=== PATIENT | female | born 1960 | race African-American/Black ===

== ENCOUNTER 2017-02-01 06:20 | Observation (INO) | payer OTHER ==
[2017-02-01] VITALS (7 sets, daily range): BP systolic 139–197; BP diastolic 81–103; PULSE 57–84; RESP 16–18; TEMP 96.2–98.2; O2SAT 96–100
[~2017-02-01] VITALS: Ht 158.8 cm; Wt 63.6 kg
[~2017-02-01 06:20] MED LIST: LISI2.5T3 PO; MONT10TA2 PO; OMEP40CA2 PO; VITA1000 PO; ZYRT10CA PO
[2017-02-01] MEDS ORDERED: BACITRACIN TOP OINT 15 GM TUBE ONE (07:05)
[2017-02-01] MEDS ORDERED: OXYMETAZOLINE HCL 0.05% 15 ML NASAL SPRAY ONE (07:05)
[2017-02-01] MEDS ORDERED: LIDOCAINE 1%/EPINEPHrine 1:100,000 SOLN 30 ML VIAL ONE (07:06)
[2017-02-01] MEDS ORDERED: AMPICILLIN-SULBACTAM INJ 3 GM VIAL ONE (07:31)
[2017-02-01] MEDS ORDERED: SODIUM CHLORIDE 0.9% INJ 100 ML ONE (07:31)
[2017-02-01] MEDS ORDERED: MIDAZOLAM HCL 2 MG/2 ML VIAL ONE (08:22)
[2017-02-01] MEDS ORDERED: DEXAMETHASONE SOD PHOS 4 MG/ML VIAL ONE (08:23)
[2017-02-01] MEDS ORDERED: FAMOTIDINE 20 MG/2 ML VIAL ONE (08:25)
[2017-02-01] MEDS ORDERED: ACETAMINOPHEN 1000 MG/100 ML VIAL IV ONE (08:50)
[2017-02-01] MEDS ORDERED: MORPHINE SULFATE 4 MG/ML INJ ONE ×2 (10:27→10:45)
[2017-02-01] MEDS ORDERED: MORPHINE SULFATE 4 MG/ML INJ IV PUSH ONE ×2 (10:30→10:45)
[2017-02-01] MEDS ORDERED: LABETALOL HCL 100 MG/20 ML VIAL IVS ONE (10:50)
[2017-02-01] MEDS ORDERED: LABETALOL HCL 100 MG/20 ML VIAL ONE (10:50)
[2017-02-01] MEDS ORDERED: ONDANSETRON HCL 4 MG/2 ML VIAL ONE (10:57)
[2017-02-01] MEDS ORDERED: HYDROmorphone HCL PF 1 MG/ML VIAL ONE ×2 (10:58→11:15)
[2017-02-01] MEDS ORDERED: ONDANSETRON HCL 4 MG/2 ML VIAL IV PUSH ONE (11:00)
[2017-02-01] MEDS ORDERED: HYDROmorphone HCL PF 1 MG/ML VIAL IV PUSH ONE (11:05)
[2017-02-01] MEDS: LACTATED RINGER'S 1000 ML INJ 1,000 ML IV SCH ×2 (12:00→23:42)
[2017-02-01] MEDS ORDERED: PROPOFOL 200 MG/20 ML AMP IV ONE (12:00)
[2017-02-01] MEDS: ACETAMINOPHEN/HYDROcodone 325 MG/5 MG TAB PO PRN ×3 (13:26→21:38)
--- NOTE | 2017-02-01 15:21 | EKG ---
Date Performed: 02/01/2017 Time Performed: 07:17:20 PTAGE: 57 years EKG: Sinus rhythm . Leftward axis Inferior T wave changes are nonspecific Borderline ECG PREVIOUS TRACING : 08/27/2008 21.39 Compared to previous tracing, QRS voltage has decreased dif fusely. DOCTOR: Natan Oleary Interpretating Date/Time 02/01/2017 15:20:15
[2017-02-01] MEDS ORDERED: PILL SPLITTER OTHER PRN (16:30)
[2017-02-01] MEDS: CHOLECALCIFEROL (VIT D3) 1000 UNIT TAB PO SCH (17:00)
[2017-02-01] MEDS: LISINOPRIL 5 MG TAB PO SCH (17:00)
[2017-02-01] MEDS: PANTOPRAZOLE SOD 40 MG DELAYED RELEASE TAB PO SCH (17:00)
[2017-02-01] MEDS: AMPICILLIN/SULBAC 1500 MG/NS 100 ML IV SCH ×2 (17:19)
[2017-02-01] MEDS: ONDANSETRON HCL 4 MG/2 ML VIAL IV PUSH PRN ×2 (17:22→23:41)
[2017-02-01] MEDS ORDERED: MONTELUKAST SODIUM 10 MG TAB PO SCH (21:00)
[2017-02-02] VITALS: BP 166/88; PULSE 64; RESP 18; TEMP 96.1; O2SAT 100
[2017-02-02] MEDS: AMPICILLIN/SULBAC 1500 MG/NS 100 ML IV SCH ×4 (01:35→08:29)
[2017-02-02] MEDS: LACTATED RINGER'S 1000 ML INJ 1,000 ML IV SCH (01:35)
[2017-02-02] MEDS: ACETAMINOPHEN/HYDROcodone 325 MG/5 MG TAB PO PRN ×3 (01:38→09:19)
[2017-02-02 05:24] VITALS: BP 164/77; PULSE 71; RESP 18; TEMP 96.9; O2SAT 99
[2017-02-02 08:00] VITALS: BP 165/94; PULSE 72; RESP 20; TEMP 96.4; O2SAT 99
[2017-02-02] MEDS: LISINOPRIL 5 MG TAB PO SCH (08:29)
[2017-02-02] MEDS: CHOLECALCIFEROL (VIT D3) 1000 UNIT TAB PO SCH (08:30)
[2017-02-02] MEDS: PANTOPRAZOLE SOD 40 MG DELAYED RELEASE TAB PO SCH (08:31)
[2017-02-02] MEDS ORDERED: CETIRIZINE HCL 10 MG TAB PO SCH (09:00)
--- NOTE | 2017-03-22 07:20 | MP ---
cc: GEORGIA MOLINA M.D. DATE OF SURGERY 02/01/[address] Georgia molina PREOPERATIVE DIAGNOSIS 1. Chronic pansinusitis 2. Nasal airway obstruction 3. Nasal septal deviation 4. Hypertrophy of inferior turbinates POSTOPERATIVE DIAGNOSIS 1. Chronic pansinusitis 2. Nasal airway obstruction 3. Nasal septal deviation 4. Hypertrophy of inferior turbinates OPERATION PERFORMED 1. Septoplasty 2. Bilateral submucosal resection of inferior turbinates 3. Bilateral endoscopic total ethmoidectomy. 4. Bilateral endoscopic maxillary antrostomy with debridement of maxillary sinus tissue 5. Bilateral endoscopic exploration of frontal sinus ducts with balloon Sinuplasty dilation. 6. Bilateral endoscopic sphenoidotomy with removal of sphenoid sinus tissue. INDICATIONS Documented in the history and physical. DESCRIPTION OF THE OPERATION The patient was taken to OR #2 and placed in the supine position. Following induction of general anesthesia and intubation, the nose was packed bilaterally with cotton pledgets saturated in 0.05% Oxymetazoline. Nasal septum and inferior turbinates were injected with a total of 6 mL of 1% Xylocaine with epinephrine 1:100,000 and she was then prepped and draped for surgery. The packing was removed and a hemitransfixion incision was made in the left nasal vestibule. Through this incision, the septal mucosa was elevated bilaterally as far as the rostrum of the sphenoid followed by removal of a 2 x 2.5 cm segment of quadrangular cartilage preserving 1.5 cm dorsal and caudal cartilaginous struts. When this was completed, the bony septum was removed with Funez-Lucas forceps and the maxillary crest was removed using a 6-mm Natasha chisel. The incision was then closed using a running suture of 4-0 chromic and the mucosal layers of septum were approximated to each other with a quilting stitch of 4-0 plain gut. The inferior turbinates were then fractured out medially and stab incisions were made along their inferior surfaces. Through these incisions, the submucosal soft tissue was reduced using a curette and preserving the conchal bone. The incision and then cauterized using the suction Bovie at 35 thomas and the remnants of the inferior turbinates were relateralized to the lateral nasal wall. At this point forward, the operation was completed using endoscopic visualization. Additional injections of lidocaine and epinephrine were made into the attachments to the middle turbinates, the uncinate processes and the anterior and posterior ethmoid cells bilaterally. The left side was addressed first beginning with amputation of the middle turbinate using through cutting Blakesley forceps and the power microdebrider, followed by uncinectomy and exoneration of the anterior and posterior ethmoids using blunt and power dissection. This was also carried back as far as the rostrum of the sphenoid. The contents of the ethmoids were included in the specimen labeled left sinus contents. Next, the maxillary ostium was addressed. It was probed using a 3-mm olive-tipped suction and the opening then enlarged using Stammberger forceps and the power microdebrider. The cavity was then debrided of mucopurulent material and soft tissue lining the posterior medial and lateral mcknight of the maxillary sinus cavity. Next on this side, the sphenoid ostium was enlarged using first a #10 suction and then enlargement using the power microdebrider. The cavity was debrided of polypoid soft tissue and mucopurulent material using a 0 degrees scope and a Blakesley forceps. These left sinuses were then irrigated and suctioned and then packed with cotton pledgets saturated in Oxymetazoline which remained in place while the right side was operated in the same fashion beginning with amputation of middle turbinate and exoneration of the anterior posterior ethmoid cells, enlargement of the right maxillary ostium and debridement of the cavity and then enlargement and debridement of the sphenoid sinus. When this was completed, the sides were also irrigated and packed with cotton pledgets saturated in Oxymetazoline. These remained in place while the frontal sinuses were dilated using the Acclarent balloon technique on the left side first. The guidewire was advanced into the frontal sinus and then the balloon advanced over the wire and inflated at the superior level within the duct itself and at the junction of the duct and the ethmoid cells at each site to a pressure of 12 atmospheres. The balloon was then removed and the duct was examined under endoscopic visualization and debrided of small fragments of bone and soft tissue and verified patent all the way into the frontal sinus. The right frontal was then operated in the same fashion. At this point, the packing was removed from the ethmoid cavities bilateral and replaced with Stammberger sinus foam on both sides. The inferior one-third of the nasal vault was then packed bilaterally with Merocel tampons coated in bacitracin ointment and the procedure was terminated. The patient was reversed from anesthesia and taken to recovery in good condition. There were no complications. Blood loss was 400 mL. MD MARILIA Roque/JONATHON /6:49 AM /7:11 AM
== END 2017-02-02 09:48 | disposition home or self-care (01) ==
LOC: PHSDC 06:20 → PH3B 12:18
PROVIDERS: ADMIT Otolaryngology; ATTEND Otolaryngology
DX: J34.89 Other specified disorders of nose and nasal sinuses (principal); J34.2 Deviated nasal septum; J32.4 Chronic pansinusitis; J34.3 Hypertrophy of nasal turbinates; Z01.810 Encounter for preprocedural cardiovascular examination
CPT/HCPCS: 00160; 30140; 30520; 31255; 31267; 31288; 31296; 88305; 88311; 93005; 94762; G0378; J0131; J0295; J1100; J1170; J2250; J2270; J2405; J3010; J7120

== ENCOUNTER 2017-11-30 12:34 | Emergency (ER) | payer OTHER ==
[~2017-11-30] VITALS: Ht 157.5 cm; Wt 61.0 kg
[2017-11-30 12:38] VITALS: BP 171/105; PULSE 85; RESP 20
[2017-11-30 12:51] VITALS: BP_SYST 165; BP_SYST 171; BP_DIAS 105; BP_DIAS 89; PULSE 85; RESP 17; RESP 20; TEMP 98.7; O2SAT 100
[2017-11-30 13:12] LABS: AUTOMATED NEUTROPHIL # 3.1 TH/MM3 (1.8-7.7); BASOPHIL # 0.1 TH/MM3 (0-0.2); BASOPHIL % 1.1 % (0.0-2.0); EOSINOPHIL # 0.1 TH/MM3 (0-0.4); EOSINOPHIL % 1.2 % (0.0-4.0); HEMATOCRIT 39.1 % (35.0-46.0); HEMOGLOBIN 13.7 GM/DL (11.6-15.3); LYMPH % 52.3 % (9.0-44.0); MEAN CELL VOLUME 87.1 FL (80.0-100.0); MEAN CORPUSCULAR HEMOGLOBIN 30.5 PG (27.0-34.0); MEAN PLATELET VOLUME 8.4 FL (7.0-11.0); MONO % 5.3 % (0.0-8.0); MONOCYTE # 0.4 TH/MM3 (0-0.9); NEUT % 40.1 % (16.0-70.0); PLATELET COUNT 282 TH/MM3 (150-450); RED BLOOD COUNT 4.48 MIL/MM3 (4.00-5.30); RED CELL DISTRIBUTION WIDTH 14.1 % (11.6-17.2); WHITE BLOOD COUNT 7.7 TH/MM3 (4.0-11.0)
[2017-11-30 13:32] LABS: CALCIUM 8.8 MG/DL (8.5-10.1); CREATININE 0.62 MG/DL (0.50-1.00); MAGNESIUM 1.8 MG/DL (1.5-2.5)
--- NOTE | 2017-11-30 13:40 | PD ---
HPI Chief Complaint: Cardiac Complaint Time Seen by Provider: 12:40 Travel History International Travel<30 days: No Contact w/Intl Traveler<30days: No Traveled to known affect area: No History of Present Illness HPI 57-year-old female patient presents emergency department via EMS with a cardiac alert. 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 The EMS was called and she was found to be in SVT upon arrival. The adenosine given and patient was in normal sinus rhythm upon arrival to the emergency department. At this time the patient is denying any chest pain, shortness of breath, nausea, vomiting, diarrhea, recent fevers, dysuria, hematuria. Patient smokes a half pack cigarettes a day and drinks approximately 2 beers daily. Patient denies any other drug use. Patient was found to be in SVT approximately year ago that resolved on its own and has not presented again until now. Patient's medical history includes hypertension and GERD. Patient takes Singulair and omeprazole. Patient was prescribed lisinopril but she stopped taking it because it made her cough. EMS checked patient's glucose prior to arrival and wanted to be 75. Patient resting comfortably on the stretcher in no acute distress at this time. PFSH Past Medical History Asthma: Yes Heart Rhythm Problems: Yes (SVT) Cancer: No Cardiovascular Problems: Yes Diabetes: No Diminished Hearing: No Endocrine: Yes (hypothyroidism) Gastrointestinal Disorders: Yes (reflux) Genitourinary: No Hepatitis: No Hiatal Hernia: No Hypertension: Yes Immune Disorder: Yes (eczema, urticaria) Musculoskeletal: Yes (osteopenea, hx fractures) Psychiatric: No Reproductive: Yes (tubal ligation) Respiratory: Yes (asthma, hay fever, seasonal allergies) Sickle Cell Disease: Yes (SICKLE CELL TRAIT.) Thyroid Disease: Yes Tetanus Vaccination: Unknown Influenza Vaccination: No Tubal Ligation: Yes Past Surgical History AICD: No Gynecologic Surgery: Yes (tubal ligation) Joint Replacement: Yes (pins and plate left elbow) Pacemaker: No Other Surgery: Yes Social History Alcohol Use: Yes (WINE DAILY) Tobacco Use: Yes (1/2 PPD) Substance Use: No Allergies-Medications (Allergen,Severity, Reaction): Coded Allergies: Sulfa (Sulfonamide Antibiotics) (Unverified Allergy, Severe, Hives, 11/30/17 ) shellfish derived (Unverified Allergy, Severe, ANAPHLAXIS, 11/30/17) cat dander (Unverified Allergy, Intermediate, 11/30/17) dog dander (Unverified Allergy, Intermediate, 11/30/17) grass pollen (Unverified Allergy, Intermediate, 11/30/17) egg (Unverified Allergy, Mild, NAUSEA VOMITING, 11/30/17) milk (Unverified Allergy, Mild, NAUSEA VOMITING, 11/30/17) Reported Meds & Prescriptions Reported Meds & Active Scripts Active Reported Omeprazole 40 Mg Cap 40 Mg PO DAILY Vitamin D-1000 (Cholecalciferol) 1,000 Unit Tab 1,000 Units PO DAILY Lisinopril 2.5 Mg Tab 2.5 Mg PO DAILY Singulair (Montelukast Sodium) 10 Mg Tab 10 Mg PO DAILY Review of Systems Except as stated in HPI: all other systems reviewed are Neg Physical Exam Narrative GENERAL: Well-nourished, well-developed 57-year-old female in no acute distress. SKIN: Focused skin assessment warm/dry. HEAD: Atraumatic. Normocephalic. EYES: Pupils equal and round. No scleral icterus. No injection or drainage. ENT: No nasal bleeding or discharge. Mucous membranes pink and moist. NECK: Trachea midline. No JVD. CARDIOVASCULAR: Regular rate and rhythm. No murmur appreciated. RESPIRATORY: No accessory muscle use. Clear to auscultation. Breath sounds equal bilaterally. GASTROINTESTINAL: Abdomen soft, non-tender, nondistended. Hepatic and splenic margins not palpable. MUSCULOSKELETAL: No obvious deformities. No clubbing. No cyanosis. No edema. NEUROLOGICAL: Awake and alert. No obvious cranial nerve deficits. Motor grossly within normal limits. Normal speech. PSYCHIATRIC: Appropriate mood and affect; insight and judgment normal. Data Data Last Documented VS Vital Signs Date Time Temp Pulse Resp B/P (MAP) Pulse Ox O2 Delivery O2 Flow Rate FiO2 11/30/17 13:08 85 17 100 Room Air 11/30/17 12:51 98.7 165/89 (114) Orders Orders Electrocardiogram (11/30/17 12:49) Basic Metabolic Panel (Bmp) (11/30/17 12:49) Complete Blood Count With Diff (11/30/17 12:49) Magnesium (Mg) (11/30/17 12:49) Chest, Single Ap (11/30/17 12:49) Ecg Monitoring (11/30/17 12:49) Bilateral Bp Monitoring (11/30/17 12:49) Iv Access Insert/Monitor (11/30/17 12:49) Oximetry (11/30/17 12:49) Oxygen Administration (11/30/17 12:49) Potassium Chloride (Kcl) (11/30/17 14:00) Labs Laboratory Tests Test 11/30/17 12:50 White Blood Count 7.7 TH/MM3 Red Blood Count 4.48 MIL/MM3 Hemoglobin 13.7 GM/DL Hematocrit 39.1 % Mean Corpuscular Volume 87.1 FL Mean Corpuscular Hemoglobin 30.5 PG Mean Corpuscular Hemoglobin Concent 35.0 % Red Cell Distribution Width 14.1 % Platelet Count 282 TH/MM3 Mean Platelet Volume 8.4 FL Neutrophils (%) (Auto) 40.1 % Lymphocytes (%) (Auto) 52.3 % Monocytes (%) (Auto) 5.3 % Eosinophils (%) (Auto) 1.2 % Basophils (%) (Auto) 1.1 % Neutrophils # (Auto) 3.1 TH/MM3 Lymphocytes # (Auto) 4.0 TH/MM3 Monocytes # (Auto) 0.4 TH/MM3 Eosinophils # (Auto) 0.1 TH/MM3 Basophils # (Auto) 0.1 TH/MM3 CBC Comment DIFF FINAL Differential Comment Blood Urea Nitrogen 6 MG/DL Creatinine 0.62 MG/DL Random Glucose 82 MG/DL Calcium Level 8.8 MG/DL Magnesium Level 1.8 MG/DL Sodium Level 142 MEQ/L Potassium Level 3.4 MEQ/L Chloride Level 108 MEQ/L Carbon Dioxide Level 22.0 MEQ/L Anion Gap 12 MEQ/L Estimat Glomerular Filtration Rate 120 ML/MIN [facility] Medical Decision Making Medical Screen Exam Complete: Yes Emergency Medical Condition: Yes Differential Diagnosis Differential diagnoses include but not limited to coronary event, arrhythmia, electrolyte abnormality, metabolic derangement, palpitations Narrative Course Patient placed on monitor. PIV obtained for EMS. Blood work sent to lab. CBC , BMP, magnesium ordered and pending. EKG ordered and interpreted. Chest x- ray ordered and pending. EKG shows sinus rhythm with heart rate 82. Chest x-ray shows no acute disease. CBC is unremarkable. BMP shows potassium 3.4 Magnesium 1.8. Patient case discussed with my attending, Dr. Haney. Patient is resting comfortably in bed. Findings discussed with patient. Patient will be given 20 mEq by mouth KCl prior to discharge. Patient is stable for discharge at this time. Patient will be discharged home with instructions to return the emergency Department with any worsening condition, smoking cessation, discontinuing daily alcohol use, and to follow-up with a inside sales manager and her primary care. Diagnosis Primary Impression: Supraventricular tachycardia Referrals: Vinyl Dipper Primary Care Physician Patient Instructions: General Instructions, Supraventricular Tachycardia (ED) Additional Instructions: Please return to emergency department if your symptoms return or worsen. Follow up with your primary care provider. Follow-up with her inside sales manager. Take medications as prescribed. Stop smoking. Disposition: DISCHARGE HOME Condition: Stable Shanae Leal Nov 30, 2017 13:40
--- NOTE | 2017-11-30 13:51 | RADRPT ---
EXAM DATE/TIME: 11/30/2017 13:17 [facility] COMPARISON: CHEST SINGLE AP, October 10, 2015, 8:41. INDICATIONS : Chest pain and weakness. MEDICAL HISTORY : Hypertension. [place]. SURGICAL HISTORY : None. ENCOUNTER: Initial ACUITY: 1 day PAIN SCORE: 3/10 LOCATION: Bilateral chest FINDINGS: A single view of the chest demonstrates the lungs to be symmetrically aerated without evidence of mas s, infiltrate or effusion. The cardiomediastinal contours are unremarkable. Osseous structures are intact. CONCLUSION: No acute disease. Jasbir Romero MD FACR on November 30, 2017 at 13:49 Board Certified Radiologist. This report was verified electronically.
[2017-11-30] MEDS ORDERED: POTASSIUM CHLORIDE 20 MEQ CONTROLLED RELEASE TAB PO ONE (14:00)
[2017-11-30 15:05] VITALS: BP 155/88
--- NOTE | 2017-11-30 17:40 | PD ---
Data Data Last Documented VS Vital Signs Date Time Temp Pulse Resp B/P (MAP) Pulse Ox O2 Delivery O2 Flow Rate FiO2 11/30/17 15:05 72 17 155/88 (110) 100 11/30/17 13:08 Room Air 11/30/17 12:51 98.7 Orders Orders Electrocardiogram (11/30/17 12:49) Basic Metabolic Panel (Bmp) (11/30/17 12:49) Complete Blood Count With Diff (11/30/17 12:49) Magnesium (Mg) (11/30/17 12:49) Chest, Single Ap (11/30/17 12:49) Ecg Monitoring (11/30/17 12:49) Bilateral Bp Monitoring (11/30/17 12:49) Iv Access Insert/Monitor (11/30/17 12:49) Oximetry (11/30/17 12:49) Oxygen Administration (11/30/17 12:49) Potassium Chloride (Kcl) (11/30/17 14:00) Ed Discharge Order (11/30/17 14:25) Labs Laboratory Tests Test 11/30/17 12:50 White Blood Count 7.7 TH/MM3 Red Blood Count 4.48 MIL/MM3 Hemoglobin 13.7 GM/DL Hematocrit 39.1 % Mean Corpuscular Volume 87.1 FL Mean Corpuscular Hemoglobin 30.5 PG Mean Corpuscular Hemoglobin Concent 35.0 % Red Cell Distribution Width 14.1 % Platelet Count 282 TH/MM3 Mean Platelet Volume 8.4 FL Neutrophils (%) (Auto) 40.1 % Lymphocytes (%) (Auto) 52.3 % Monocytes (%) (Auto) 5.3 % Eosinophils (%) (Auto) 1.2 % Basophils (%) (Auto) 1.1 % Neutrophils # (Auto) 3.1 TH/MM3 Lymphocytes # (Auto) 4.0 TH/MM3 Monocytes # (Auto) 0.4 TH/MM3 Eosinophils # (Auto) 0.1 TH/MM3 Basophils # (Auto) 0.1 TH/MM3 CBC Comment DIFF FINAL Differential Comment Blood Urea Nitrogen 6 MG/DL Creatinine 0.62 MG/DL Random Glucose 82 MG/DL Calcium Level 8.8 MG/DL Magnesium Level 1.8 MG/DL Sodium Level 142 MEQ/L Potassium Level 3.4 MEQ/L Chloride Level 108 MEQ/L Carbon Dioxide Level 22.0 MEQ/L Anion Gap 12 MEQ/L Estimat Glomerular Filtration Rate 120 ML/MIN MDM Supervised Visit with ELPIDIO: Yes Narrative Course The history, exam, and medical decision-making in the associated midlevel provider note were completed with my assistance. I reviewed and agree with the findings presented. I attest that I had a [id number] encounter with the patient on the same day, and personally performed and documented my assessment and findings in the medical record. *My assessment and Findings: This is a 57 year old female who presents to the emergency department with SVT that started at work with a heart rate in the 180s. EMS arrived and noted the SVT on the monitor and gave her a dose of 6 mg of adenosine. Her arrhythmia converted. Currently she feels fine and back to normal. This is happened to her in the past and she did follow with cardiology in the past and had a Holter monitor. Labs are all reassuring. I think the patient can be discharged home and follow-up with her primary care doctor or cardiology. Diagnosis Primary Impression: Supraventricular tachycardia Referrals: Gumming Machine Operator Primary Care Physician Patient Instructions: General Instructions, Supraventricular Tachycardia (ED) Departure Forms: Tests/Procedures Additional Instruction: Please return to emergency department if your symptoms return or worsen. Follow up with your primary care provider. Follow-up with her cinder block mason. Take medications as prescribed. Stop smoking. Disposition: 01 DISCHARGE HOME Condition: Stable Alyssa Haney MD Nov 30, 2017 17:40
--- NOTE | 2017-12-03 00:03 | EKG ---
Date Performed: 11/30/2017 Time Performed: 12:41:41 PTAGE: 57 years EKG: Sinus rhythm MARKED LEFT AXIS DEVIATION ABNORMAL ECG INTERPRETATION BASED ON A DEFAULT AGE OF 41 YEARS PREVIOUS TRACING : 02/01/2017 07.17 DOCTOR: Robinson Tejada Interpretating Date/Time 12/03/2017 00:03:06
== END 2017-11-30 15:06 | disposition home or self-care (01) ==
LOC: NEPE 12:34
DX: I47.1 Supraventricular tachycardia (principal); I10 Essential (primary) hypertension; K21.9 Gastro-esophageal reflux disease without esophagitis; J45.909 Unspecified asthma, uncomplicated; D57.3 Sickle-cell trait; E03.9 Hypothyroidism, unspecified; R94.31 Abnormal electrocardiogram [ECG] [EKG]; L30.9 Dermatitis, unspecified; F17.210 Nicotine dependence, cigarettes, uncomplicated
CPT/HCPCS: 71045; 80048; 83735; 85025; 93005; 99285